=== PATIENT | male | born 1965 | race Caucasian/White ===

== ENCOUNTER 2022-11-10 16:03 | Day surgery (SDC) | payer OTHER ==
[2022-11-10] MEDS ORDERED: LIDOCAINE HCL 1% 50 MG/5 ML VL PF IJ ONE (16:04)
[2022-11-10] MEDS ORDERED: BUPIVACAINE 0.5% VIAL IJ ONE (16:04)
--- NOTE | 2022-11-10 19:40 | XRAY ---
Indication: Left knee genicular nerve block. Intraoperative fluoroscopy provided for 17 second. 3 digital spot image left knee submitted for interpretation demonstrates anterior needle tip projectings medial/lateral supracondylar and medial tibial plateau. Correlate with intraoperative findings/report.
--- NOTE | 2022-11-11 09:19 | XRAY ---
17 seconds of fluoroscopy was used in surgery for a left genicular nerve block.
== END 2022-11-10 19:30 | disposition home or self-care (01) ==
LOC: SDC-PAIN 16:03
PROVIDERS: ATTEND Psychiatry & Neurology Pain Medicine
DX: M17.12 Unilateral primary osteoarthritis, left knee (principal); E11.9 Type 2 diabetes mellitus without complications; Z79.899 Other long term (current) drug therapy
CPT/HCPCS: 64454; 73560; 77002; 82947; J2001